=== PATIENT | male | born 1975 | race Caucasian/White ===

== ENCOUNTER 2018-07-18 13:31 | Emergency (ER) | payer OTHER ==
[~2018-07-18] VITALS: Ht 185.4 cm; Wt 118.2 kg
[2018-07-18 13:34] VITALS: TEMP 98.5
[2018-07-18 16:00] VITALS: BP 128/85; PULSE 98
== END 2018-07-18 16:01 | disposition home or self-care (01) ==
LOC: COL.ER 13:31
DX: S16.1XXA Strain of muscle, fascia and tendon at neck level, initial encounter (principal); F17.210 Nicotine dependence, cigarettes, uncomplicated; X50.0XXA Overexertion from strenuous movement or load, initial encounter